=== PATIENT | male | born 1940 | race Caucasian/White ===

== ENCOUNTER 2017-08-24 14:05 | Emergency (ER) | payer MEDICARE, BC ==
[~2017-08-24] VITALS: Ht 175.3 cm; Wt 122.5 kg
[~2017-08-24 14:05] MED LIST: ACET325 PO; ASCO500 PO; ASPI325; ASPI325 PO; ATOR40TA; ATOR80 PO; BYETTA; CARV25 PO; CARV6.25; CARV6.25 PO; CEPH500 PO; CHOL10002; CHOL10002 PO; CILO100; CILO100 PO; CILO50; CILO50 PO; DABI150C; DABI150C PO; DELTASONE20 MG PO; DOCU100 PO; FAMO10; FISH1000 PO; FURO40; FURO40 PO; GABA300 PO; GABA600 PO; HYDR1TAB94 PO; IBUP600 PO; INSLI100I; INSLI100I SC; INSLIS75I SC; INSUGL100V SC; INSULANI; INSULANI SC; INSULANPEN SC; LEVO750 PO; LEVSOD50 PO; LEVSOD75 PO; LEVSOD88 PO; LIRA0.6P; LISI20 PO; LISI5; METF500C PO; METO2.5; MULTI VITAMIN1 EACH PO; MULVITMINF; MULVITMINF PO; Medi-Lyte Tabl1 EACH PO; Micro-K10 MEQ PO; NITR.4SL SL; Nitrostat0.4 MG SL; OMEG1CAP30 PO; OMEP20ER; OMEP20ER PO; OMEP40CA12 PO; OSEL75CA PO; OXYACE7.5T PO; PIOG15; POTA10T PO; POTCHL10ER PO; POTCHL20ER; POTCHL20ER PO; Pentoxifylline400 MG PO; RXNITR.4 SL; SITA100T2 PO; SPIR25 PO; TESTOSTERONE; TESTOSTERONE INJ; VICTOZA INJ; [UNRECOGNIZED DRUG - CODE]; [UNRECOGNIZED DRUG - OTHER]; [UNRECOGNIZED DRUG - REMARK]
[2017-08-24] MEDS ORDERED: SITA50T2 PO (14:22)
[2017-08-24] MEDS ORDERED: XARELTO15 MG PO (14:23)
[2017-08-24 14:27] LABS: BASOPHILS ABSOLUTE AUTO 0.05 K/mm3 (0.00-0.23); BASOPHILS PERCENT AUTO 1 % (0-2); EOSINOPHILS ABSOLUTE AUTO 0.18 K/mm3 (0.00-0.68); EOSINOPHILS PERCENT AUTO 2 % (0-6); Hematocrit 25.2 % (37.0-53.0); Hemoglobin 8.2 g/dL (13.5-17.5); IMMATURE GRAN ABSOLUTE AUTO 0.06 K/mm3 (0.00-0.10); IMMATURE GRAN PERCENT AUTO 1 % (0-1); LYMPHOCYTES ABSOLUTE AUTO 1.62 K/mm3 (0.84-5.20); LYMPHOCYTES PERCENT AUTO 15 % (21-46); MONOCYTES ABSOLUTE AUTO 0.82 K/mm3 (0.16-1.47); MONOCYTES PERCENT AUTO 8 % (4-13); Mean Corpuscular HGB 30.1 pg (26.0-34.0); Mean Corpuscular HGB Conc 32.5 g/dL (31.5-36.5); Mean Corpuscular Volume 93 fL (80-100); Mean Platelet Volume 11.5 fL (9.1-12.4); NEUTROPHILS ABSOLUTE AUTO 8.01 K/mm3 (1.96-9.15); NEUTROPHILS PERCENT AUTO 75 % (41-73); Platelet Count 148 K/mm3 (150-400); RDW Coefficient Variation 16.2 % (11.7-14.2); RDW Standard Deviation 54.4 fL (35.1-46.3); Red Blood Cell Count 2.72 M/mm3 (4.30-5.90); White Blood Cell Count 10.74 K/mm3 (4.00-11.30)
[2017-08-24 14:51] LABS: Albumin, Blood 2.2 g/dL (3.4-5.0); Albumin/Globulin Ratio 0.7 (0.8-1.8); Bun/Creatinine Ratio 19.3 (12.0-20.0); Calcium, Blood 8.2 mg/dL (8.5-10.1); Creatinine, Blood 2.12 mg/dL (0.60-1.20); Globulin, Blood 3.3 g/dL (2.2-4.0); Potassium, Blood 4.9 mmol/L (3.5-5.5); Total Protein, Blood 5.5 g/dL (6.4-8.2)
[2017-08-24 18:05] LABS: Chloride (POC) 103 mmol/L (98-108); Creatinine (POC) 2.1 mg/dL (0.8-1.3); Glucose (ISTAT POC) 152 mg/dL (70-99); Hemoglobin (POC) 6.5 g/dL (13.5-17.5); Potassium (POC) 5.1 mmol/L (3.5-5.5); Sodium (POC) 138 mmol/L (135-148); Total CO2 (POC) 26 mmol/L (21-32)
[2017-08-24 18:17] LABS: Hematocrit 21.4 % (37.0-53.0); Hemoglobin 6.9 g/dL (13.5-17.5); Mean Corpuscular HGB 30.3 pg (26.0-34.0); Mean Corpuscular HGB Conc 32.2 g/dL (31.5-36.5); Mean Corpuscular Volume 94 fL (80-100); Mean Platelet Volume 11.9 fL (9.1-12.4); Platelet Count 139 K/mm3 (150-400); RDW Coefficient Variation 16.2 % (11.7-14.2); RDW Standard Deviation 55.4 fL (35.1-46.3); Red Blood Cell Count 2.28 M/mm3 (4.30-5.90); White Blood Cell Count 11.37 K/mm3 (4.00-11.30)
[2017-08-24 18:30] LABS: International Normalized Ratio 1.22; Prothrombin Time Results 12.4 Sec (9.7-11.5)
== END 2017-08-24 20:47 | disposition short-term general hospital (02) ==
LOC: ER 14:05
PROVIDERS: Emergency Medicine; Internal Medicine; Physician Assistant
DX: I48.2 Chronic atrial fibrillation (principal); N28.9 Disorder of kidney and ureter, unspecified; D64.9 Anemia, unspecified; K43.9 Ventral hernia without obstruction or gangrene; E11.9 Type 2 diabetes mellitus without complications; E66.01 Morbid (severe) obesity due to excess calories; Z68.39 Body mass index [BMI] 39.0-39.9, adult; Z79.899 Other long term (current) drug therapy; Z79.82 Long term (current) use of aspirin; Z79.4 Long term (current) use of insulin; Z87.891 Personal history of nicotine dependence
CPT/HCPCS: 36415; 51702; 74176; 80047; 80053; 83605; 84484; 85014; 85025; 85027; 85610; 85730; 86850; 86900; 86901; 86923; 93005; 93010; C9113; J2405; J7030; P9016; P9035; P9059